=== PATIENT | female | born 1975 ===

== ENCOUNTER 2021-08-09 06:15 | Day surgery (SDC) | payer OTHER ==
[~2021-08-09] VITALS: Ht 157.5 cm; Wt 72.6 kg
[~2021-08-09 06:15] MED LIST: CLONAZEPAM1 MG PO; ESCITALOPRAM PO
== END 2021-08-09 13:25 | disposition home or self-care (01) ==
LOC: CIR.AMB 06:15
PROVIDERS: ATTEND Obstetrics & Gynecology Gynecologic Oncology
DX: N80.1 Endometriosis of ovary (principal); Z20.822 Contact with and (suspected) exposure to COVID-19; N73.6 Female pelvic peritoneal adhesions (postinfective)